=== PATIENT | male | born 1990 | race Two or more races ===

== ENCOUNTER 2022-08-28 00:57 | Emergency (ER) | payer MEDICAID, SELFPAY ==
[2022-08-28 01:09] VITALS: BP 120/66; BP 120/78; PULSE 65; PULSE 76; RESP 18; TEMP 36.8; O2SAT 100; O2SAT 98; BMI 22.9
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
[2022-08-28 01:51] VITALS: BP 105/59; PULSE 64; RESP 19; O2SAT 98
[2022-08-28] MEDS: Acetaminophen 325 MG TABLET 975 MG PO (02:45)
[2022-08-28 02:59] VITALS: BP 107/72; PULSE 67; RESP 18; TEMP 36.2; O2SAT 97
== END 2022-08-28 03:01 | disposition home or self-care (01) ==
PROVIDERS: Emergency Provider Emergency Medicine
DX: S01.01XA Laceration without foreign body of scalp, initial encounter (principal); R51.9 Headache, unspecified; X99.9XXA Assault by unspecified sharp object, initial encounter; Y93.9 Activity, unspecified; Y92.9 Unspecified place or not applicable; Y99.9 Unspecified external cause status
CPT/HCPCS: 12002; 99283; 99284

== ENCOUNTER 2022-08-29 11:01 | Emergency (ER) | payer MEDICAID, SELFPAY ==
--- NOTE | ~2022-08-29 | CT_ITS ---
EXAMINATION: HEAD CT WITHOUT CONTRAST CERVICAL SPINE CT WITHOUT CONTRAST CLINICAL INFORMATION: Trauma COMPARISON: CT head 08/21/2018 TECHNIQUE: Contiguous axial imaging of the head was performed without the administration of IV contrast. Axial multidetector volumetric images were also performed through the cervical spine without contrast. Multiplanar reconstructed images in coronal and sagittal orientations were submitted. DOSE: 1196 mGy-cm FINDINGS: HEAD: There is a right sided scalp hematoma, with the skin carlos alberto in the right parietal region. No underlying calvarial fracture. There is evidence of contrecoup injury in the left frontoparietal region, with multiple foci of predominantly subarachnoid hemorrhage. There probably a small hemorrhagic contusion present as well, with the some surrounding edema. Image 8:66. No evidence of infarction. No abnormal mass-effect or midline shift. No extra-axial fluid collections. Tariq to white matter differentiation is well preserved. The ventricles are normal in size and configuration. . No acute calvarial fracture is seen. The sinuses and mastoid air cells are clear. CERVICAL SPINE: Straightening of the spinal curvature. There is anatomic alignment of the vertebral bodies and posterior elements. The atlantoaxial and atlantooccipital articulations are maintained. Mild disc degeneration at C6-C7. No evidence of acute fracture. No prevertebral soft tissue swelling. Visualized lung apices appear unremarkable. No suspicious findings.. CT/CT cervical spine wo IV con IMPRESSION: 1. There is evidence of contrecoup injury in the left frontoparietal region, with multiple foci predominantly subarachnoid hemorrhage. There probably is a small hemorrhagic contusion present as well, with surrounding edema.. Recommend clinical correlation, management and close clinical follow-up. Recommend short-term follow-up CT for reassessment. Further evaluation with MRI as clinically warranted. 2. No CT evidence of acute fracture or malalignment in the cervical spine. This critical result was discussed with Dr. Blevisn at 12:34 PM on 08/29/2022 and it was ascertained that the content and urgency of the report was understood at the time of direct communication.
[2022-08-29 11:04] VITALS: BP 108/80; PULSE 77; RESP 18; TEMP 36.7; O2SAT 98; BMI 24.3
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
--- NOTE | 2022-08-29 12:52 | PC.NURSE ---
CALLED PTS CONTACT NUMBER, [employer] ANSWERED AND IT WAS RECOMMENDED THE PATIENT RETURNS TO THE ED FOR FURTHER EVALUATION.
== END 2022-08-29 12:20 | disposition left against medical advice (07) ==
PROVIDERS: Emergency Provider Emergency Medicine
DX: R51.9 Headache, unspecified (principal); M54.2 Cervicalgia
CPT/HCPCS: 70450; 72125; 87635; 99284; 99285

== ENCOUNTER 2022-08-29 13:42 | Emergency (ER) | payer MEDICAID, SELFPAY ==
[2022-08-29 13:49] VITALS: RESP 20; BMI 23.6
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
[2022-08-29] MEDS: oxyCODONE HCl Immed Release 5 MG TABLET 10 MG PO (14:07)
[2022-08-29 14:14] VITALS: BP 108/65; PULSE 55; RESP 17; O2SAT 99
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
[2022-08-29 15:07] LABS: COVID-19 Test Negative (Negative)
--- NOTE | 2022-08-29 15:18 | PC.NURSE ---
rn to rn report given to antionette at [facility] [place]pt transfered via ems.
== END 2022-08-29 15:22 | disposition short-term general hospital (02) ==
PROVIDERS: Emergency Provider Emergency Medicine
DX: S06.6X0A Traumatic subarachnoid hemorrhage without loss of consciousness, initial encounter (principal); W19.XXXA Unspecified fall, initial encounter; Y93.9 Activity, unspecified; Y92.9 Unspecified place or not applicable; Y99.9 Unspecified external cause status; Z20.822 Contact with and (suspected) exposure to COVID-19; Z79.899 Other long term (current) drug therapy
CPT/HCPCS: 87635; 99285

== ENCOUNTER 2022-09-09 19:17 | Emergency (ER) | payer MEDICAID, SELFPAY ==
--- OUTSIDE RECORDS SUMMARY | 2022-09-09 21:09 | XMS_ITS | Continuity of Care Document ---
:1990 Author Organization [facility] Address [address] [place] [address]- Care Team Providers Name Role Phone Not on Staff, PCP Primary Care Physician Unavailable Encounter [facility] Date(s): 08/29/22 - 08/29/22 [facility] [address] [place] [address]- Encounter Diagnosis Subarachnoid hemorrhage (Final) - 02/02/22 Discharge Disposition: A-D/C Home Attending Physician: Mecca Kirk MD Admitting Physician: Mecca Kirk MD Referring Physician: Not on Staff, Referring MD Allergies, Adverse Reactions, Alerts No Known Allergies Vital Signs Most recent to oldest [Reference Range]: 1 2 Oxygen Saturation [94-100 %] 99 % 99 % (08/29/22 6:33 PM) (08/29/22 3:49 PM) Pulse Rate [55-90 bpm] 52 bpm 62 bpm *L* (08/29/22 3:49 PM) (08/29/22 6:33 PM) Blood Pressure [90-138/55-84 mm Hg] 108/85 mm Hg 127/ 81 mm Hg (08/29/22 6:33 PM) (08/29/22 3:49 PM) Respiratory Rate [16-30 br/min] 21 br/min 21 br/mi n (08/29/22 6:33 PM) (08/29/22 3:49 PM) Temperature [96.8-100.4 DegF] 98.3 DegF (08/29/22 3:49 PM) Mode of Delivery (Oxygen) Room air Room air (08/29/22 6:33 PM) (08/29/22 3:49 PM) Blood pressure sites Arm, right Arm, right (08/29/22 6:33 PM) (08/29/22 3:49 PM) Temperature Route Oral (08/29/22 3:49 PM) Patient Care team information PersonnelName: Not on Staff, PCP
== END 2022-09-09 21:19 | disposition left against medical advice (07) ==
PROVIDERS: Emergency Provider Emergency Medicine
DX: M79.643 Pain in unspecified hand (principal)

== ENCOUNTER 2022-09-12 17:20 | Emergency (ER) | payer MEDICAID, SELFPAY ==
[2022-09-12 17:33] VITALS: BP 107/65; PULSE 93; RESP 16; TEMP 36.8; O2SAT 96; BMI 27.2
--- NOTE | 2022-09-12 17:35 | ED.RECABL ---
HPI - Recheck/Abnormal Lab/Rx General Chief Complaint: General Medical Stated Complaint: carlos alberto removed from head Time Seen by Provider: 09/12/22 17:36 Source: patient Mode of arrival: ambulatory Limitations: no limitations History of Present Illness HPI narrative: 32-year-old male presenting to the ER with request for staple removal he was seen here on 08/28/22 for a closed head injury and had 4 carlos alberto placed. He denies any new symptoms. Reports that he was described medication although he did not take it. He reports he feels much better denies any symptoms at this time. Is requesting for refill for his psoriasis. He denies any other symptoms complaints or concerns at this time. MD complaint: suture/staple removal Initial visit (ago): day(s) (15) Initial visit for: laceration Returns today for: staple/stitch removal Symptoms since prior visit: no new symptoms Context: planned re-check Associated symptoms: none Treatments prior to arrival: other (see above ) Related Data Previous Rx's Medication Instructions Recorded acetaminophen 500 mg capsule 500 mg PO Q6H PRN pain #10 caps 08/28/22 ibuprofen 600 mg tablet 600 mg PO Q8H PRN pain #14 tabs 08/28/22 prednisone 20 mg tablet 40 mg PO DAILY rash 5 days #10 tabs 09/12/22 triamcinolone acetonide 0.5 % 1 appl topical QID psoriasis #465 09/12/22 topical ointment grams Allergies Allergy/AdvReac Type Severity Reaction Status Date / Time No Known Allergies Allergy Unverified 07/18/20 16:01 [No Known Allergies*] Review of Systems Review of Systems: Constitutional : No Fever, No Chills, Cardiovascular : No Chest Pain, No SOB Respiratory : No Dyspnea Gastrointestinal : No abdominal pain Musculoskeletal : No Joint Swelling Skin : positive healing skin laceration, +rash, No Foreign bodies, No surrounding erythema Neuro : No Weakness, No Numbness/tingling Psych : No SI/HI/thoughts of self injury Yes all other systems are reviewed and are negative [facility] Past Medical History Attestation statement: The following information was validated with the patient. Source: old records reviewed and nursing notes reviewed Social History Social History Alcohol intake: never Patient Tobacco Use Status: Never used Tobacco Advance Directives: No Advance Directives Information Provided: No Physical Exam Vital Signs: Vital Signs: Last Vital Signs Temp 98.2 F 09/12/22 17:33 Pulse 93 09/12/22 17:33 Resp 16 09/12/22 17:33 BP 107/65 09/12/22 17:33 Pulse Ox 96 09/12/22 17:33 O2 Del Method 09/12/22 17:33 BMI result Body Mass Index 27.2 vital signs have been reviewed as normal and appeared to be correct. Blood pressure normal Heart rate normal. Respiration rate normal. Temperature normal. Oxygen saturation normal. Appearance: Alert. Oriented X3. No acute distress. Head: Normal external exam. Normocephalic. Atraumatic. Eyes: PERRLA. EOMI. Conjunctiva and sclera normal. Eyelids normal. ENT: Pharynx normal. Uvula midline. Moist mucous membranes. Neck: Normal inspection. Neck supple. FROM. CVS: Normal heart rate and rhythm. Respiratory: No respiratory distress. Painless inspiration. Skin: Skin warm and dry. Normal skin color. Normal skin turgor. Well healing lacerations to right side of scalp with [address] No signs of infection. Patient noted to have psoriasis rash scattered throughout the entire body. No additional rashes/lesions/lacerations noted. Extremities: Extremities exhibit normal range of motion. Extremities nontender. Neuro: Oriented X 3. No motor deficit. No sensory deficit. Reflexes normal. Normal steady gait. No focal neuro deficits noted. Course Course Course Narrative: Patient now status post staple removal. Four carlos alberto removed. Patient tolerated procedure well. No complications. No signs of infection. Will also DC home with medication for his psoriasis and instructions return if any new or worsening symptoms follow up with primary care provider. Patient understands agrees with this plan. MDM - Recheck/Abnormal Lab/Rx Medical Records Attestation: I reviewed the patient's medical records. Discharge Plan Discharge Clinical Impression: Encounter for removal of carlos alberto, Psoriasis Patient Disposition: Home, Self-Care Instructions: Stitches Removal (ED) Prescriptions: New triamcinolone acetonide 0.5 % ointment 1 appl topical QID Qty: 465 0RF prednisone 20 mg tablet 40 mg PO DAILY 5 Days Qty: 10 0RF No Action acetaminophen 500 mg capsule 500 mg PO Q6H PRN (Reason: pain) Qty: 10 0RF ibuprofen 600 mg tablet 600 mg PO Q8H PRN (Reason: pain) Qty: 14 0RF Rx Instructions: alternate Tylenol and ibuprofen every 4-6 hours Referrals: Physician,Unknown J [Primary Care Provider] - (your pcp)
== END 2022-09-12 17:50 | disposition home or self-care (01) ==
LOC: HO.ED 17:41
PROVIDERS: Emergency Provider Emergency Medicine
DX: Z48.02 Encounter for removal of sutures (principal); S01.01XD Laceration without foreign body of scalp, subsequent encounter; X58.XXXD Exposure to other specified factors, subsequent encounter; L40.9 Psoriasis, unspecified
CPT/HCPCS: 99282; 99283

== ENCOUNTER 2024-12-27 04:26 | Emergency (ER) | payer OTHER, SELFPAY ==
[2024-12-27 04:32] VITALS: BP 113/65; PULSE 91; RESP 16; TEMP 36.6; O2SAT 95; BMI 26.6
--- OUTSIDE RECORDS SUMMARY | 2024-12-27 12:04 | XMS_ITS | Clinical Summary ---
Author Organization [facility] Address [address] [place] [address] Care Team Providers Care Design Drafter Name Role Phone Unavailable Primary Care Provider Unavailabl e Social History Tobacco Use Types Packs/Day Years Used Date Smoking Tobacco: Never Assessed Sex and Gender Information Value Date Recorded Sex Assigned at Not on file Legal Sex Male 1:38 PM EDT Gender Identity Not on file Sexual Orientation Not on file Plan of Treatment Health Maintenance Due Date Last Done Comments DTaP,Tdap,and Td Vaccines (1 - Tdap) 2009 Hepatitis B Vaccines (1 of 3 - 19+ 3-dose series) 2009 Depression Screening 05/24/2024 HIV Screening 05/24/2024 Hepatitis C Screening 05/24/2024 Social Influencers of Health Screening 05/24/2024 COVID-19 Vaccine (1 - 2023-2 5 season) 2024 Influenza Vaccine (#1) 2024 HIB Vaccines Aged Out No longer eligi ble based on patient's age to complete this topic HPV Vaccines Aged Out No longer eligi ble based on patient's age to complete this topic Hepatitis A Vaccines Aged Out No long er eligible based on patient's age to complete this topic IPV Vaccines Aged Out No longer eligi ble based on patient's age to complete this topic MMR Vaccines Aged Out No longer eligi ble based on patient's age to complete this topic Meningococcal ACWY Vaccine Aged Out N o longer eligible based on patient's age to complete this topic Meningococcal B Vacine Aged Out No lo nger eligible based on patient's age to complete this topic Pneumococcal Vaccine: Pediat rics (0 to 5 Years) and At-Risk Patients (6 to 64 Years) Aged Out No longer eligible b ased on patient's age to complete this topic RSV Immunization Patients Un jacques 20 months Aged Out No longer eligible b ased on patient's age to complete this topic Varicella Vaccines Aged Out No longer eligible based on patient's age to complete this topic
== END 2024-12-27 10:06 | disposition left against medical advice (07) ==
PROVIDERS: Emergency Provider Emergency Medicine
DX: L40.9 Psoriasis, unspecified (principal); Z53.21 Procedure and treatment not carried out due to patient leaving prior to being seen by health care provider
CPT/HCPCS: 99281

== ENCOUNTER 2025-01-22 01:57 | Emergency (ER) | payer OTHER, SELFPAY ==
[2025-01-22 02:06] VITALS: BP 120/72; PULSE 91; RESP 16; TEMP 36.7; O2SAT 96; BMI 22.5
[2025-01-22 06:21] VITALS: BP 93/72; PULSE 75; RESP 16; TEMP 36.4; O2SAT 96
--- NOTE | 2025-01-22 08:23 | ED_ITS ---
HPI - Skin/Abscess/Foreign Bdy General Chief complaint: Skin/Abscess/Foreign Body Stated complaint: psoriasis Time Seen by Provider: 01/22/25 08:22 Source: patient, RN notes reviewed and old records reviewed Mode of arrival: ambulatory History of Present Illness ED Provider: Jena Reis PA-C HPI narrative: 34-year-old male with a past medical history of psoriasis presenting to the ED complaining of psoriasis flare and requesting medication refill. States he uses triamcinolone ointment on rash with improvement however has been out of it for few months. States has not fall with Dermatology for couple years. Denies new/recent exposures including soap, lotion, detergent, SOB, throat closing sensation. Related Data Previous Rx's ?Medication ?Instructions ?Recorded acetaminophen 500 mg capsule 500 mg PO Q6H PRN pain #10 caps 08/28/22 ibuprofen 600 mg tablet 600 mg PO Q8H PRN pain #14 tabs 08/28/22 prednisone 20 mg tablet 40 mg (2 x 20 mg) PO DAILY rash 5 09/12/22 days #10 tabs triamcinolone acetonide 0.5 % 1 appl topical QID psoriasis #465 09/12/22 topical ointment grams triamcinolone acetonide 0.025 % 1 appl topical BID PRN rash #454 01/22/25 topical ointment grams Allergies Allergy/AdvReac Type Severity Reaction Status Date / Time No Known Allergies Allergy Verified 01/22/25 02:09 [No Known Allergies*] Review of Systems Review of Systems: Yes all other systems are reviewed and are negative Constitutional: Constitutional: Reports as per [facility] Past Medical History Attestation statement: The following information was validated with the patient. Source: old records reviewed Social History Social History Alcohol intake: never Patient Tobacco Use Status: Never used Tobacco Advance Directives: No Advance Directives Information Provided: Yes Do you have a plan to hurt others: No Plan Physical Exam Vital Signs: Vital Signs: Last Vital Signs Temp 97.6 F 01/22/25 06:21 Pulse 75 01/22/25 08:41 Resp 16 01/22/25 06:21 BP 104/75 01/22/25 08:41 Pulse Ox 99 01/22/25 08:41 O2 Del Method Room Air 01/22/25 08:41 BMI result Body Mass Index 22.5 Const: General: cooperative, healthy appearing and no acute distress Orientation/consciousness: patient oriented x3 Limitations: no limitations HEENT: Head: Yes normal to inspection and Yes atraumatic Ears: hearing grossly normal bilaterally General nose exam: Normal external nose present Face and sinus: Yes normal facial exam Eyes: General: appearance normal, both eyes and all related structures EOM: EOMs intact bilaterally Neck: Neck: Yes normal visual inspection and Yes no meningeal signs Resp: Effort & Inspection: normal respiratory effort and no respiratory distress Auscultation: clear to auscultation bilaterally Cardio: Rate: regular rate Heart sounds: S1 normal heart sound present and S2 normal heart sound present Skin: Other: + diffuse psoriasis patches noted to abd omen, back, buttock, lower extremities with scaling. No palm/sole involvement. No sloughing. Wounds: no wounds Neuro: General: patient oriented x3, tone normal and no meningeal signs Cranial nerves: Yes CN's II-XII intact bilaterally Gait exam (Neuro): Normal gait present Extrem: General: Yes normal to inspection Medical Decision Making Medical Decision Making MDM Narrative: 34-year-old male with a past medical history of psoriasis presenting to the ED complaining of psoriasis flare and requesting medication refill. On exam vital signs stable, NAD, nontoxic appearing, physical exam as noted above consistent with psoriasis. No evidence of overlying cellulitis. No evidence of abscess or drainable collection. No evidence of anaphylaxis, SJS or TENs Plan: Refilled triamcinolone, dermatology referral Please refer to course for remaining clinical decision making, interpretation of labs/imaging results, and discussions with consultants and/or family members. Results discussed with patient including worrisome signs and symptoms and strict return precautions, and when to return to the emergency department. They verbalized understanding and feel safe for discharge at this time. Differential Diagnosis Differential Diagnoses: The differential diagnosis associated with the presentation includes As above External Record Review External record reviewed: Inpatient record, Office record, Outpatient record, Prior outpatient labs, Prior outpatient radiology, Primary care record and Outside ED record Tests considered The following testing was considered but not selected: As above Prescription Management I considered prescription management with: Other Social Determinants Patient?s care significantly limited by Social Determinants of Health including: Other Social Determinant of Health Discharge Plan Discharge Clinical Impression: Psoriasis Patient Disposition: Home, Self-Care Instructions: Psoriasis (ED) Additional Instructions: Use triamcinolone, topical steroid ointment to your rash/patches only DO NOT APPLY TO YOUR FACE, HANDS, FEET THEY MADE DISCOLORED YOUR SKIN You need to follow-up with Dermatology If your symptoms persist or worsen return to the ED Prescriptions: New triamcinolone acetonide 0.025 % ointment 1 appl topical BID PRN (Reason: rash) Qty: 454 0RF No Action acetaminophen 500 mg capsule 500 mg PO Q6H PRN (Reason: pain) Qty: 10 0RF ibuprofen 600 mg tablet 600 mg PO Q8H PRN (Reason: pain) Qty: 14 0RF Rx Instructions: alternate Tylenol and ibuprofen every 4-6 hours triamcinolone acetonide 0.5 % ointment 1 appl topical QID Qty: 465 0RF prednisone 20 mg tablet 40 mg PO DAILY 5 Days Qty: 10 0RF Referrals: [facility] [Outside] [facility] [Outside] Discharge Date/Time: 01/22/25 11:08 Print Language: Kiswahili
[2025-01-22 08:41] VITALS: BP 104/75; PULSE 75; O2SAT 99
== END 2025-01-22 11:08 | disposition home or self-care (01) ==
PROVIDERS: Emergency Provider Emergency Medicine Emergency Medical Services; PCP Internal Medicine
DX: L40.9 Psoriasis, unspecified (principal); Z76.0 Encounter for issue of repeat prescription
CPT/HCPCS: 99283

== ENCOUNTER 2025-02-11 21:00 | Emergency (ER) | payer OTHER, SELFPAY ==
[2025-02-11 21:27] VITALS: BP 132/85; PULSE 114; RESP 19; TEMP 37.7; O2SAT 98; BMI 25.8
[2025-02-11 21:50] LABS: MANUAL DIFF FLAG NO
[2025-02-11 22:00] LABS: Basophils Absolute Auto 0.1 X10*3/uL (0.0-0.2); Basophils Percent Auto 0.3 % (0-2); Hematocrit 48.2 % (42.0-52.0); Hemoglobin 16.8 g/dl (14.0-18.0); Imm Gran Abs Auto 0.09 X10*3/uL (0.00-0.03); Imm Gran Pct Auto 0.5 % (0.0-0.4); Lymphocytes Absolute Auto 1.6 X10*3/uL (1.2-4.9); Lymphocytes Percent Auto 8.8 % (20-40); Mean Corpuscular HGB Conc 34.9 g/dl (31.0-36.0); Mean Corpuscular Hemoglobin 29.8 pg (27.0-33.0); Mean Corpuscular Volume 85.5 fL (80.0-98.0); Mean Platelet Volume 11.4 fL (9.4-12.4); Monocytes Absolute Auto 1.3 X10*3/uL (0.1-1.2); Monocytes Percent Auto 6.8 % (2-11); Neutrophils Absolute Auto 15.6 x10*3/uL (2.0-8.3); Neutrophils Percent Auto 83.6 % (45-73); Platelet Count 174 X10*3/uL (160-400); Red Blood Count 5.64 X10*6/uL (4.60-5.80); Red Cell Distribution Width 14.6 % (11.0-16.0); White Blood Count 18.6 X10*3/uL (4.8-10.8)
--- NOTE | 2025-02-11 22:13 | PC.NURSE ---
Re collect for chemistry called from the lab. Pt declines to have blood work re drawn.
--- NOTE | 2025-02-11 22:56 | PC.NURSE ---
This nurse made aware by chiller technician that pt declined to have blood work re-drawn and is currently getting dressed. When this nurse went to the room pt is dressed in his regular clothes and when asked why pt changed, if he was leaving, pt did not answer and continue to adjust his clothing and pt then left. Charge nurse made aware.
== END 2025-02-11 23:03 | disposition left against medical advice (07) ==
PROVIDERS: Internal Medicine; Emergency Provider Emergency Medicine Emergency Medical Services; PCP Internal Medicine
DX: S60.311A Abrasion of right thumb, initial encounter (principal); W55.03XA Scratched by cat, initial encounter; Y93.9 Activity, unspecified; Y92.9 Unspecified place or not applicable; Y99.9 Unspecified external cause status; Z53.21 Procedure and treatment not carried out due to patient leaving prior to being seen by health care provider
CPT/HCPCS: 36415; 85025; 99281; 99284

== ENCOUNTER 2025-03-01 22:55 | Emergency (ER) | payer OTHER, SELFPAY ==
[2025-03-01 23:00] VITALS: BP 116/71; PULSE 99; RESP 16; TEMP 36.2; O2SAT 97; BMI 21.5
--- OUTSIDE RECORDS SUMMARY | 2025-03-02 00:27 | XMS_ITS | Clinical Summary ---
Author Organization [facility] Address [address] [place] [address] Phone Care Team Providers Care Dairy Husbandry Worker Name Role Phone Diego Francois Primary Care Provider [phone] Immunizations Immunization Administration Dates Next Due DTP 06/25/1995, 3,01/12/1992,1990,1990 Hep B, ped/adol 04/09/2005,09/01/2004,10/02/2002 Hib (PRP-T) 1990 IPV 1990 MMR 06/25/1995,11/28/1991 OPV 06/25/1995,11/28/1991,1990 Td (adult) (MBL), 2 Lf tetan us toxoid, PF, adsorbed 08/28/2002 Family History Relation Name Status Comments Mother Mother: Asthma Social History Tobacco Use Types Packs/Day Years Used Date Smoking Tobacco: Never Assessed Sex and Gender Information Value Date Recorded Sex Assigned at Not on file Legal Sex Male 4:22 PM EDT Gender Identity Not on file Sexual Orientation Not on file Plan of Treatment Health Maintenance Due Date Last Done Comments DTaP,Tdap,and Td Vaccines (6 - Tdap) 08/29/2002 08/28/2002, 06/25/1995, 04/04/1993, Additional history exists Varicella Vaccines (1 of 2 - 13+ 2-dose series) 2003 Influenza Vaccines (#1) 2024 COVID-19 Vaccine ( - 2023- season) 2024 HIB Vaccines Aged Out 1990 No longer eligi ble based on patient's age to complete this topic IPV Vaccines Completed 06/25/1995, 11/02, 1990, Additional history exists MMR Vaccines Completed 06/25/1995, 11/28/1991 Hepatitis B Vaccines Completed 04/09/2005, 09/01/2004, 10/02/2002 HPV Vaccines Aged Out No longer eligi ble based on patient's age to complete this topic Hepatitis A Vaccines Aged Out No long er eligible based on patient's age to complete this topic Men B Vaccine Aged Out No longer elig ible based on patient's age to complete this topic Meningococcal Vaccine Aged Out No rakan beatrice eligible based on patient's age to complete this topic Pneumococcal Vaccine Aged Out No long er eligible based on patient's age to complete this topic Care Teams Dairy Husbandry Worker Relationship Specialty Start Date End Date Diego Francois [address] [place] [id number] PCP - General 06/11/17
== END 2025-03-02 00:43 | disposition left against medical advice (07) ==
PROVIDERS: Emergency Provider Emergency Medicine
DX: L30.9 Dermatitis, unspecified (principal); Z53.21 Procedure and treatment not carried out due to patient leaving prior to being seen by health care provider
CPT/HCPCS: 99281

== ENCOUNTER 2025-03-08 22:38 | Emergency (ER) | payer OTHER, SELFPAY ==
[2025-03-08 22:45] VITALS: BP 115/58; PULSE 86; RESP 20; TEMP 36.9; O2SAT 99; BMI 22.1
--- NOTE | 2025-03-08 23:09 | ED_ITS ---
HPI - Skin/Abscess/Foreign Bdy General Chief complaint: Skin/Abscess/Foreign Body Stated complaint: left side forehead irritation Time Seen by Provider: 03/08/25 22:56 Source: patient and old records reviewed Mode of arrival: ambulatory Limitations: no limitations History of Present Illness ED Provider: RAMSES NESS narrative: 34 yo male with PMH of psoriasis who ran out of his triamcinolone cream now has lesions on the trunk that is bothering him. He has no fevers, redness, swelling, yellow drainage. This is chronic MD complaint: rash Onset (ago): year(s) Tetanus up to date: yes Location: generalized Severity: mild Relieving factors: none Exacerbating factors: none Context: other Associated symptoms: denies other symptoms Treatments prior to arrival: none Related Data Previous Rx's ?Medication ?Instructions ?Recorded acetaminophen 500 mg capsule 500 mg PO Q6H PRN pain #10 caps 08/28/22 ibuprofen 600 mg tablet 600 mg PO Q8H PRN pain #14 tabs 08/28/22 prednisone 20 mg tablet 40 mg (2 x 20 mg) PO DAILY rash 5 09/12/22 days #10 tabs triamcinolone acetonide 0.5 % 1 appl topical QID psoriasis #465 09/12/22 topical ointment grams triamcinolone acetonide 0.025 % 1 appl topical BID PRN rash #454 01/22/25 topical ointment grams triamcinolone acetonide 0.1 % 1 appl topical BID 10 days #15 03/08/25 topical cream grams Allergies Allergy/AdvReac Type Severity Reaction Status Date / Time No Known Allergies Allergy Verified 03/08/25 22:46 [No Known Allergies*] Review of Systems Review of Systems: Constitutional : No Fever, No Chills ENT/Mouth : No sore throat, No Rhinorrhea Eyes: No Eye Pain, No Swelling, No Redness Cardiovascular : No Chest Pain, No SOB Respiratory : No Cough, No Sputum Gastrointestinal : No Nausea, No Vomiting, No Diarrhea, No abdominal Pain Genitourinary : No Dysuria, No Hematuria Musculoskeletal : No joint pain, No Myalgias, No Joint Swelling Skin : pos Skin Lesions, positive skin rash Neuro : No Weakness, No Numbness, No Headache All other systems reviewed and are negative PMFSH Past Medical History Attestation statement: The following information was validated with the patient. Source: old records reviewed Medical History Psoriasis Social History Social History Alcohol intake: current Alcohol intake frequency: holidays/special occasions only Patient Tobacco Use Status: Never used Tobacco Substance Use Type: Marijuana Physical Exam Vital Signs: Vital Signs: Last Vital Signs Temp 98.4 F 03/08/25 23:19 Pulse 86 03/08/25 23:19 Resp 20 03/08/25 23:19 BP 115/58 L 03/08/25 23:19 Pulse Ox 99 03/08/25 23:19 O2 Del Method Room Air 03/08/25 23:19 BMI result Body Mass Index 22.1 Appearance: Alert. Oriented X3. No acute distress. Eyes: Pupils equal, round and reactive to light. ENT: Pharynx normal. Neck: Normal inspection. CVS: Pulses normal. Respiratory: No respiratory distress. Abdomen: Soft and nontender. Skin: Skin warm and dry. areas of psoriasis plaque on trunk no signs of secondary infection Extremities: No lower extremity edema. Neuro: Oriented X 3. No motor deficit. No sensory deficit. CN2-12 intact Medical Decision Making Medical Decision Making MDM Narrative: 34 yo male with PMH of psoriasis who has no new complaints but wants his cream filled - he has no signs of infection will fill short course of topical therapy. Differential Diagnosis Differential Diagnoses: The differential diagnosis associated with the presentation includes psoriasis External Record Review External record reviewed: Outpatient record Prescription Management I considered prescription management with: Other Discharge Plan Discharge Clinical Impression: Psoriasis Patient Disposition: Home, Self-Care Instructions: Psoriasis (ED) Additional Instructions: return for redness, yellow drainage, fevers, signs of infection follow up with your doctor Prescriptions: New triamcinolone acetonide 0.1 % cream 1 appl topical BID 10 Days Qty: 15 0RF No Action acetaminophen 500 mg capsule 500 mg PO Q6H PRN (Reason: pain) Qty: 10 0RF ibuprofen 600 mg tablet 600 mg PO Q8H PRN (Reason: pain) Qty: 14 0RF Rx Instructions: alternate Tylenol and ibuprofen every 4-6 hours triamcinolone acetonide 0.5 % ointment 1 appl topical QID Qty: 465 0RF prednisone 20 mg tablet 40 mg PO DAILY 5 Days Qty: 10 0RF triamcinolone acetonide 0.025 % ointment 1 appl topical BID PRN (Reason: rash) Qty: 454 0RF Interventions: ED Discharge Assessment Last Done: 03/08/25 23:19 Print Language: Nepalese
[2025-03-08 23:19] VITALS: BP 115/58; PULSE 86; RESP 20; TEMP 36.9; O2SAT 99
--- OUTSIDE RECORDS SUMMARY | 2025-03-08 23:27 | XMS_ITS | Clinical Summary ---
Author Organization [employer] Address [address] [facility] [address] [place] [address] Care Team Providers Care Storage Battery Inspector Name Role Phone Unavailable Primary Care Provider Unavailabl e Encounters Date Type Department Care Team Description 03/08/2025 Telephone [facility] [address] [place] [address] Nicole Edwards CNP SEISMOLOGY TEACHER from Last 3 Months Social History Tobacco Use Types Packs/Day Years Used Date Smoking Tobacco: Never Assessed Sex and Gender Information Value Date Recorded Sex Assigned at Male 08/31/2022 10:34 AM EDT Legal Sex Male 10:34 AM EDT Gender Identity Male 08/31/2022 10:34 AM EDT Sexual Orientation Straight 08/31/2022 10 :34 AM EDT Plan of Treatment Health Maintenance Due Date Last Done Comments Depression Screening 1990 Alcohol/Substance Use Screening 2002 Tobacco Screening 2002 Family Planning (PISQ) 2005 DTaP/Tdap/Td Vaccines (1 - Tdap) 2009 Hepatitis B Vaccines (1 of 3 - 19+ 3-dose series) 2009 COVID-19 Vaccine ( - 2023-2 5 season) 2024 Influenza Vaccine (#1) 2024 09/01/2019 Zoster Vaccines (1 of 2) 2040 RSV Patients and Pa tients Aged 60 years or older (1 - 1-dose 75+ series) 2065 HIB Vaccines Aged Out No longer eligi [...] 5 Years) and At-Risk Patients (6 to 49) Years) Aged Out No longer elig ible based on patient's age to complete this topic RSV under 20 months Aged Out No longe r eligible based on patient's age to complete this topic Rotavirus Vaccines Aged Out No longer eligible based on patient's age to complete this topic
--- OUTSIDE RECORDS SUMMARY | 2025-03-08 23:27 | XMS_ITS | Clinical Summary ---
Author Organization [facility] Address [address] [place] [address] Phone Care Team Providers Care Hair Dryer Name Role Phone Diego Francois Primary Care Provider [phone] Immunizations Immunization Administration Dates Next Due DTP [...] age to complete this topic Care Teams Hair Dryer Relationship Specialty Start Date End Date Diego Francois [address] [place] [id number] PCP - General 06/11/17
--- OUTSIDE RECORDS SUMMARY | 2025-03-08 23:27 | XMS_ITS | Encounter Summary ---
Author Organization [email or web address] Address [address] [facility] [address] [place] [address] Care Team Providers Care Stripe Marker Name Role Phone Unavailable Primary Care Provider Unavailabl e Reason for Visit * Reason Onset Date Comments MANAGER COMPLIANCE 03/08/2025 Encounter Details Date Type Department Care Team (Late st Contact Info) Description 03/08/2025 Telephone [facility] [address] [place] [address] Nicole Edwards CNP [address] [place] [address] MANAGER COMPLIANCE Social History Tobacco Use Types Packs/Day Years Used Date Smoking Tobacco: Never Assessed Sex and Gender Information Value Date Recorded Sex Assigned at Male 08/31/2022 10:34 AM EDT Legal Sex Male 10:34 AM EDT Gender Identity Male 08/31/2022 10:34 AM EDT Sexual Orientation Straight 08/31/2022 10 :34 AM EDT documented as of this encounter Miscellaneous Notes * Telephone Encounter - Nadine Momin - 03/08/2025 11:24 AM EDT Patient walked in, interested in becoming a MANAGER COMPLIANCE. Patient was given the MANAGER COMPLIANCE # and advised to call/leave vm. Patient has some medical conditions. Mentioned he has [employer] as insurance but didn't have card with him. Patients chart was updated. documented in this encounter Plan of Treatment Not on file documented as of this encounter Visit Diagnoses Not on filedocumented in this encounter
== END 2025-03-08 23:27 | disposition home or self-care (01) ==
LOC: HO.ED 23:25
PROVIDERS: Emergency Provider Emergency Medicine
DX: L40.9 Psoriasis, unspecified (principal); R21 Rash and other nonspecific skin eruption
CPT/HCPCS: 99283; 99284

== ENCOUNTER 2025-03-09 12:27 | Emergency (ER) | payer OTHER, SELFPAY ==
[2025-03-09 12:34] VITALS: BP 131/59; BP 148/78; PULSE 104; PULSE 69; RESP 16; TEMP 37.4; O2SAT 98; BMI 21.5
[2025-03-09 12:55] VITALS: BP 131/59; PULSE 69; RESP 16; TEMP 37.4; O2SAT 98
--- NOTE | 2025-03-09 12:55 | ED_ITS ---
HPI - General Adult General Chief complaint: Overdose Stated complaint: UNCOOPERATIVE Time Seen by Provider: 03/09/25 12:51 Source: patient Mode of arrival: ambulatory Limitations: no limitations History of Present Illness ED Provider: Thomas Krishnamurthy HPI narrative: 34-year-old male presents to ED for drug overdose. Patient was found library unresponsive and was given 2 mg of Narcan and patient woke up immediately patient is brought to the ED. patient does not want any further evaluation patient patient does not want control and recovery combat rescue medical evaluation. Related Data Previous Rx's ?Medication ?Instructions ?Recorded acetaminophen 500 mg capsule 500 mg PO Q6H PRN pain #10 caps 08/28/22 ibuprofen 600 mg tablet 600 mg PO Q8H PRN pain #14 tabs 08/28/22 prednisone 20 mg tablet 40 mg (2 x 20 mg) PO DAILY rash 5 09/12/22 days #10 tabs triamcinolone acetonide 0.5 % 1 appl topical QID psoriasis #465 09/12/22 topical ointment grams triamcinolone acetonide 0.025 % 1 appl topical BID PRN rash #454 01/22/25 topical ointment grams triamcinolone acetonide 0.1 % 1 appl topical BID 10 days #15 03/08/25 topical cream grams Allergies Allergy/AdvReac Type Severity Reaction Status Date / Time No Known Allergies Allergy Verified 03/09/25 12:34 [No Known Allergies*] Review of Systems Review of Systems: Overdose Yes all other systems are reviewed and are negative PMFSH Past Medical History Medical History Psoriasis Social History Social History Alcohol intake: current Alcohol intake frequency: holidays/special occasions only Patient Tobacco Use Status: Never used Tobacco Substance Use Type: Marijuana Advance Directives: No Advance Directives Information Provided: No Physical Exam ED Vital Signs: Vital Signs - 24 hr 03/09/25 12:34 Temperature 99.3 F Pulse Rate 69 Respiratory Rate 16 Blood Pressure 131/59 L Pulse Oximetry 98 Oxygen Delivery Method Room Air BMI result Body Mass Index 21.5 Const General: cooperative, healthy appearing, comfortable, no acute distress, well developed, alert, awake and Physically active Orientation/consciousness: patient oriented x3 HENMT Head: Yes normal to inspection, Yes No palpable skull fracture present, Yes normocephalic, Yes atraumatic and No abrasion Eyes General: appearance normal, both eyes and all related structures Neck Neck: Yes normal visual inspection, Yes full ROM, Yes no lymphadenopathy, Yes no meningeal signs, Yes trachea midline, Yes supple, No anterior neck swelling and No tender Chest Chest palpation & inspection: normal inspection of the chest and normal palpation of entire chest wall Resp Effort & Inspection: normal respiratory effort and able to speak in complete sentences Auscultation: clear to auscultation bilaterally Cardio Jugular venous distension: no JVD Heart sounds: S1 normal heart sound present and S2 normal heart sound present GI Inspection: Yes normal to inspection Palpation (GI): Soft to palpation, not firm, nontender, no guarding and not rigid General: Yes no CVA tenderness Back/Spine/Pelvis Back: no CVA tenderness and No back tenderness Skin General skin exam: no rashes or lesions noted, elasticity normal and turgor normal Neuro General: patient oriented x3, gait normal, tone normal, moves all extremities, Normal light touch and pain sensation, no meningeal signs, no focal motor deficits, CN's II-XI intact bilaterally and normal sensation to monofilament Extrem General: Yes normal to inspection, Yes full ROM and Yes capillary refill normal Psych Appearance: grossly normal, well kempt and not disheveled Medical Decision Making Medical Decision Making MDM Narrative: 12:39: Patient was brought in for overdose. patient was found unresponsive and was than given 2mg nasal narcan. patient has pmh of substance abuse. patient presently A0x3 and would like to be discharge. patient presently is asymptomatic. Patient does not want to be throughouly evaluated,. patient explained risk of hypoxia, respiratory failure, brain bleed, other life- threatening etiologies if he does not want to stay to be evaluated. Patient still would like to be discharged. Patient was sign against medical advice.. Patient was explained risk of . Patient refused Narcan or recovery. Patient's headache exam was evaluated. Vital signs stable. Patient is left before sign the AMA papers. Differential Diagnosis Differential Diagnoses: The differential diagnosis associated with the presentation includes (overdose) Admission/Observation Consideration of admission/observation: Escalation of care including admission/observation considered Independent Historian Clinical information obtained from an independent historian. History obtained from or confirmed by: Other (patient) Discharge Plan Discharge Clinical Impression: Drug overdose Patient Disposition: Left Against Medical Advice Instructions: Adult Overdose (ED) Additional Instructions: You are leaving the ED without Narcan or full thorough evaluation. Recommend follow up with primary care provider therapist and control and recovery combat rescue. Return to the ED immediately for any concerning symptoms. Prescriptions: No Action acetaminophen 500 mg capsule 500 mg PO Q6H PRN (Reason: pain) Qty: 10 0RF ibuprofen 600 mg tablet 600 mg PO Q8H PRN (Reason: pain) Qty: 14 0RF Rx Instructions: alternate Tylenol and ibuprofen every 4-6 hours triamcinolone acetonide 0.5 % ointment 1 appl topical QID Qty: 465 0RF prednisone 20 mg tablet 40 mg PO DAILY 5 Days Qty: 10 0RF triamcinolone acetonide 0.1 % cream 1 appl topical BID 10 Days Qty: 15 0RF triamcinolone acetonide 0.025 % ointment 1 appl topical BID PRN (Reason: rash) Qty: 454 0RF Stand Alone Forms: Against Medical Advice Interventions: ED Discharge Assessment Last Done: 03/09/25 12:55 Discharge Date/Time: 03/09/25 13:50 Print Language: Greek
--- NOTE | 2025-03-09 12:55 | PC.NURSE ---
pt given some water and apple sauce. pt immediately demanded to leave. DELILAH Guzman assessed pt and pt is DCed AMA. Pt refused to sign AMA paperwork. pt offered nasal take home narcan and refused. Pt walked with steady gait out of department.
--- OUTSIDE RECORDS SUMMARY | 2025-03-09 13:55 | XMS_ITS | Clinical Summary ---
Author Organization [employer] Address [address] [facility] [address] [place] [address] Care Team Providers Care Brand Designer Name Role Phone Unavailable Primary Care Provider Unavailabl e Encounters Date Type Department Care Team Description 03/08/2025 Telephone [facility] [address] [place] [address] Nicole Edwards CNP CONVERTING SUPERVISOR from Last 3 Months Social History Tobacco [...]
--- OUTSIDE RECORDS SUMMARY | 2025-03-09 13:55 | XMS_ITS | Encounter Summary ---
Author Organization [employer] Address [address] [facility] [address] [place] [address] Care Team Providers Care Shafting Worker Name Role Phone Unavailable Primary Care Provider Unavailabl e Reason for Visit * Reason Onset Date Comments COOK SHORT ORDER 03/08/2025 Encounter Details Date Type Department Care Team (Late st Contact Info) Description 03/08/2025 Telephone [facility] [address] [place] [address] Nicole Edwards CNP [address] [place] [address] COOK SHORT ORDER Social History Tobacco Use Types Packs/Day Years [...] Patient walked in, interested in becoming a COOK SHORT ORDER. Patient was given the COOK SHORT ORDER # and advised to call/leave vm. Patient has some medical conditions. Mentioned he has [employer] as insurance but didn't have card with him. Patients chart was updated. documented in this encounter Plan of Treatment Not on file documented as of this encounter Visit Diagnoses Not on filedocumented in this encounter
--- OUTSIDE RECORDS SUMMARY | 2025-03-09 13:55 | XMS_ITS | Clinical Summary ---
Author Organization [facility] [employer] [facility] Address [address] [place] [address] Care Team Providers Care Rehabilitation Supervisor Name Role Phone Unavailable Primary Care Provider [...] Influencers of Health Screening 05/24/2024 COVID-19 Vaccine ( - 2023-2 5 season) 2024 Influenza Vaccine (Season Ended) 2025 HIB Vaccines Aged Out No longer eligi [...] age to complete this topic Meningococcal B Vaccine Aged Out No l onger eligible based on patient's age to complete [...]
--- OUTSIDE RECORDS SUMMARY | 2025-03-09 13:55 | XMS_ITS | Clinical Summary ---
Author Organization [facility] Address [address] [place] [address] Phone Care Team Providers Care Recreational Vehicle Resort Manager Name Role Phone Diego Francois Primary Care Provider [phone] Immunizations Immunization Administration Dates Next Due DTP [...] age to complete this topic Care Teams Recreational Vehicle Resort Manager Relationship Specialty Start Date End Date Diego Francois [address] [place] [id number] PCP - General 06/11/17
== END 2025-03-09 13:50 | disposition left against medical advice (07) ==
LOC: HO.ED 13:53
PROVIDERS: Emergency Provider Emergency Medicine Emergency Medical Services
DX: T50.901A Poisoning by unspecified drugs, medicaments and biological substances, accidental (unintentional), initial encounter (principal); R40.4 Transient alteration of awareness; Y92.9 Unspecified place or not applicable; Z53.29 Procedure and treatment not carried out because of patient's decision for other reasons
CPT/HCPCS: 99282

== ENCOUNTER 2025-03-20 20:40 | Emergency (ER) | payer OTHER, SELFPAY ==
[2025-03-20 20:44] VITALS: BP 121/64; PULSE 82; RESP 16; TEMP 36.7; O2SAT 97; BMI 20.8
--- NOTE | 2025-03-20 20:46 | ED.SKABFB ---
HPI - Skin/Abscess/Foreign Bdy General Chief complaint: Skin/Abscess/Foreign Body Stated complaint: Skin irritation All over, Skin pain Time Seen by Provider: 03/20/25 20:53 Source: patient Mode of arrival: ambulatory Limitations: no limitations History of Present Illness ED Provider: FLOYD MURILLO PA-C HPI narrative: 34-year-old male with a pmhx significant for psoriasis presents to the ED for evaluation of psoriasis flare in requesting medication refill. Reports using triamcinolone ointment on rash with improvement. Recently ran out of this. States the ointment is the only thing that works. Refuses to use the cream. He has not followed with PCP or Dermatology for a few years now. Denies new/recent exposures including soap, lotion, detergent, SOB, throat closing sensation. Related Data Previous Rx's ?Medication ?Instructions ?Recorded acetaminophen 500 mg capsule 500 mg PO Q6H PRN pain #10 caps 08/28/22 ibuprofen 600 mg tablet 600 mg PO Q8H PRN pain #14 tabs 08/28/22 prednisone 20 mg tablet 40 mg (2 x 20 mg) PO DAILY rash 5 09/12/22 days #10 tabs triamcinolone acetonide 0.5 % 1 appl topical QID psoriasis #465 09/12/22 topical ointment grams triamcinolone acetonide 0.025 % 1 appl topical BID PRN rash #454 01/22/25 topical ointment grams triamcinolone acetonide 0.1 % 1 appl topical BID 10 days #15 03/08/25 topical cream grams triamcinolone acetonide 0.025 % 1 appl topical BID PRN rash #454 03/20/25 topical ointment grams Allergies Allergy/AdvReac Type Severity Reaction Status Date / Time No Known Allergies Allergy Verified 03/20/25 20:45 [No Known Allergies*] Review of Systems Review of Systems: Yes all other systems are reviewed and are negative PMFSH Past Medical History Attestation statement: The following information was validated with the patient. Source: old records reviewed and nursing notes reviewed Medical History Psoriasis Social History Social History Alcohol intake: current Alcohol intake frequency: holidays/special occasions only Patient Tobacco Use Status: Never used Tobacco Substance Use Type: Marijuana Advance Directives: No Advance Directives Information Provided: No Do you have a plan to hurt others: No Plan Physical Exam Vital Signs: Vital Signs: Last Vital Signs Temp 98.0 F 03/20/25 20:44 Pulse 82 03/20/25 20:44 Resp 16 03/20/25 20:44 BP 121/64 03/20/25 20:44 Pulse Ox 97 03/20/25 20:44 O2 Del Method Room Air 03/20/25 20:44 BMI result Body Mass Index 20.8 Vital signs stable General: Well appearing, in no acute distress. Skin: +diffuse psoriasis patches noted to abdomen, back, lower extremities with scaling. No palm/sole involvement. No sloughing. no wounds. Head: Normocephalic, atraumatic. EENT: Hearing is intact b/l. Conjunctiva clear. Sclera is anicteric. PERRLA. EOM intact. Moist mucous membranes.? Neck: Supple without LAD. FROM. Trachea midline.? Cardiac: Chest wall symmetric. RRR Lungs: Normal respiratory effort without accessory muscle use. CTA bilaterally Neuro: AOx3. Normal speech. Ambulating with steady gait. Medical Decision Making Medical Decision Making MDM Narrative: 34-year-old male with a pmhx significant for psoriasis presents to the ED for evaluation of psoriasis flare in requesting medication refill. vital signs stable. on exam, diffuse psoriasis patches noted to abdomen, back, lower extremities with scaling. No palm/sole involvement. No sloughing. no wounds. Exam consistent with psoriasis. No evidence of cellulitis. No abscess or drainable collection. No signs of anaphylaxis, SJS or TEN. Will send refill of triamcinolone ointment to pharmacy. Dermatology referral provided. Differential Diagnosis Differential Diagnoses: The differential diagnosis associated with the presentation includes as above. Admission/Observation not indicated. Prescription Management I considered prescription management with: Other (Triamcinolone ointment) Chronic Conditions Patient?s care impacted by: Other (Psoriasis) Social Determinants Patient?s care significantly limited by Social Determinants of Health including: Other Social Determinant of Health Critical Care Time Critical Care Time Critical Care Time: No Discharge Plan Discharge Clinical Impression: Psoriasis Patient Disposition: Home, Self-Care Instructions: Psoriasis (ED) Additional Instructions: Apply triamcinolone ointmetn (topical steroid) to your rash/patches only DO NOT APPLY TO YOUR FACE, HANDS, FEET THEY MADE DISCOLORED YOUR SKIN You need to follow-up with Dermatology. Referral provided. If your symptoms persist or worsen return to the ED Prescriptions: New triamcinolone acetonide 0.025 % ointment 1 appl topical BID PRN (Reason: rash) Qty: 454 0RF No Action acetaminophen 500 mg capsule 500 mg PO Q6H PRN (Reason: pain) Qty: 10 0RF ibuprofen 600 mg tablet 600 mg PO Q8H PRN (Reason: pain) Qty: 14 0RF Rx Instructions: alternate Tylenol and ibuprofen every 4-6 hours triamcinolone acetonide 0.5 % ointment 1 appl topical QID Qty: 465 0RF prednisone 20 mg tablet 40 mg PO DAILY 5 Days Qty: 10 0RF triamcinolone acetonide 0.1 % cream 1 appl topical BID 10 Days Qty: 15 0RF triamcinolone acetonide 0.025 % ointment 1 appl topical BID PRN (Reason: rash) Qty: 454 0RF Referrals: Mecca Marcos PA-C [Physician Manager Contact] - Physician,Unknown J [Primary Care Provider] - Print Language: St Helenian
[2025-03-20 21:00] VITALS: BP 121/64; PULSE 82; RESP 16; TEMP 36.7; O2SAT 97
== END 2025-03-20 21:00 | disposition home or self-care (01) ==
PROVIDERS: Emergency Provider Emergency Medicine Emergency Medical Services
DX: L40.9 Psoriasis, unspecified (principal)
CPT/HCPCS: 99282; 99283

== ENCOUNTER 2025-06-08 22:36 | Emergency (ER) | payer OTHER, SELFPAY ==
[2025-06-08 22:53] VITALS: BP 121/76; PULSE 82; O2SAT 98
[2025-06-08 23:07] VITALS: BP 116/73; PULSE 63; RESP 16; TEMP 36.6; O2SAT 98; BMI 20.7
--- NOTE | 2025-06-09 03:14 | ED_ITS ---
HPI - General Adult General Chief complaint: General Medical Stated complaint: AMS Time Seen by Provider: 06/09/25 03:05 Source: EMS Mode of arrival: EMS Limitations: other History of Present Illness ED Provider: Dr. Emely Vega HPI narrative: Patient comes to the emergency room via EMS. According to EMS, the patient walked in to [facility] saying that he needed help. Patient did not mentioned anything specific. They told the patient that he needed to medically cleared before getting admitted. They called the ambulance for him. When ambulance arrived to pick him up at [facility], the patient was not able to give him his date of , once answering questions awkwardly, seems a bit confused. Denies any injuries or any pain. Patient did not answer if he has any psychiatric history. Patient has no complaints, patient just states that he has been walking too much for too long. Initially when patient arrived, he was not answering any questions at all, he is covered himself in the blanket and kept giggling Related Data Previous Rx's ?Medication ?Instructions ?Recorded acetaminophen 500 mg capsule 500 mg PO Q6H PRN pain #1 0 caps 08/28/22 ibuprofen 600 mg tablet 600 mg PO Q8H PRN pain #14 t abs 08/28/22 prednisone 20 mg tablet 40 mg (2 x 20 mg) PO DAILY r yajaira 5 09/12/22 days #10 tabs triamcinolone acetonide 0.5 % 1 appl topical QID psori asis #465 09/12/22 topical ointment grams triamcinolone acetonide 0.025 % 1 appl topical BID PRN rash #454 01/22/25 topical ointment grams triamcinolone acetonide 0.1 % 1 appl topical BID 10 da ys #15 03/08/25 topical cream grams triamcinolone acetonide 0.025 % 1 appl topical BID PRN rash #454 03/20/25 topical ointment grams Allergies Allergy/AdvReac Type Severity Reaction Status Date / Time No Known Allergies (No Known Allergy Verified 06/08/25 23:10 Allergies*) Review of Systems Review of Systems: Constitutional : No Weight loss, No Fever, No Chills, No Night Sweats, No Fatigue, No Malaise ENT/Mouth : No Hearing loss, No Ear Pain, No Nasal Congestion, No Sinus Pain, No Hoarseness, No sore throat, No Rhinorrhea, No Swallowing Difficulty Eyes: No Eye Pain, No Swelling, No Redness, No Foreign Body, No Discharge, No Vision Changes Cardiovascular : No Chest Pain, No SOB, No Dyspnea on Exertion, No Orthopnea, No Edema, No Palpitations Respiratory : No Cough, No Sputum, No Wheezing, No Smoke Exposure, No Dyspnea Gastrointestinal : No Nausea, No Vomiting, No Diarrhea, No Constipation, No abdominal Pain, No Hematochezia, No Melena Genitourinary : no irregular bleeding, No Dysuria, No Urinary Frequency, No Hematuria, No Urinary Incontinence, No Urgency, No Flank Pain, No Urinary Flow Changes, No Hesitancy Musculoskeletal : No joint pain, No Myalgias, No Joint Swelling Skin : No Skin Lesions, No rash Neuro : No Weakness, No Numbness, No Paresthesias, No Loss of Consciousness, No Dizziness, No Headache Psych : Denies SI or HI Heme/Lymph: No Bruising, No Bleeding,No Lymphadenopathy Endocrine : No Polyuria, No Polydipsia, No Temperature Intolerance [facility] Past Medical History Medical History Psoriasis Social History Social History Alcohol intake: current Alcohol intake frequency: holidays/special occasions only Patient Tobacco Use Status: Never used Tobacco Substance Use Type: Marijuana Physical Exam ED Exam Exam: Appearance: Alert. No acute distress. Eyes: Pupils equal, round and reactive to light. ENT: Pharynx normal. Neck: Normal inspection. Neck supple. No lymph nodes noted. No crepitus CVS: Normal heart rate and rhythm. Pulses normal. Normal S1 and S2 Respiratory: No respiratory distress. Breath sounds normal. No Wheezing. No rales Abdomen: Soft and nontender. No rigidity. No distention. Skin: Skin warm and dry. Normal skin color. Normal skin turgor. Patient has psoriasis especially around the head Extremities: No lower extremity edema. No Lacerations. No Rash Neuro:. No motor deficit. No sensory deficit. Moving all extremities. No slurred speech. CN 2 through 12 grossly intact Psych: calm, cooperative, bizarre affect Vital Signs: Vital Signs - 24 hr 06/08/25 23:07 Temperature 98 F Pulse Rate 63 Respiratory Rate 16 Blood Pressure 116/73 Pulse Oximetry 98 Oxygen Delivery Method Room Air BMI result Body Mass Index 20.7 Course Course Course Narrative: Reviewing patient's past medical records, seems that patient has been in the emergency room previously for drug overdose. At this time, all of patient's labs pending Care team consult pending Physician observation started at 03:15 Medical Decision Making Differential Diagnosis Differential Diagnoses: The differential diagnosis associated with the presentation includes (Polysubstance abuse, alcohol abuse) Admission/Observation Consideration of admission/observation: Escalation of care including admission/observation considered (Given patient's initial presentation, observation pending. Patient is under physician observation waiting to be seen by the care team) Critical Care Time Critical Care Time Critical Care Time: Yes Total Critical Care Time: 35 Attestation: I have personally provided critical care time. Time includes review of lab data, radiology results, discussion with consultants, and monitoring for potential decompensation. Intervention performed as documented. Discharge Plan Discharge Clinical Impression: Polysubstance abuse Prescriptions: No Action acetaminophen 500 mg capsule 500 mg PO Q6H PRN (Reason: pain) Qty: 10 0RF ibuprofen 600 mg tablet 600 mg PO Q8H PRN (Reason: pain) Qty: 14 0RF Rx Instructions: alternate Tylenol and ibuprofen every 4-6 hours triamcinolone acetonide 0.5 % ointment 1 appl topical QID Qty: 465 0RF prednisone 20 mg tablet 40 mg PO DAILY 5 Days Qty: 10 0RF triamcinolone acetonide 0.1 % cream 1 appl topical BID 10 Days Qty: 15 0RF triamcinolone acetonide 0.025 % ointment 1 appl topical BID PRN (Reason: rash) Qty: 454 0RF triamcinolone acetonide 0.025 % ointment 1 appl topical BID PRN (Reason: rash) Qty: 454 0RF Print Language: Cambodian
[2025-06-09 04:03] VITALS: BP 133/73; PULSE 75; RESP 16; TEMP 36.4; O2SAT 96
[2025-06-09 04:04] LABS: Hematocrit 42.4 % (42.0-52.0); Hemoglobin 14.9 g/dl (14.0-18.0); Imm Gran Abs Auto 0.01 X10*3/uL (0.00-0.03); Imm Gran Pct Auto 0.2 % (0.0-0.4); Lymphocytes Absolute Auto 2.7 X10*3/uL (1.2-4.9); MANUAL DIFF FLAG NO; Mean Corpuscular HGB Conc 35.1 g/dl (31.0-36.0); Mean Corpuscular Hemoglobin 29.3 pg (27.0-33.0); Mean Corpuscular Volume 83.5 fL (80.0-98.0); NRBC Abs Auto 0.000 X10*3/uL (0.0-0.012); NRBC Pct Auto 0.0 /100WBC (0.0-0.2); Platelet Count 178 X10*3/uL (160-400); Red Blood Count 5.08 X10*6/uL (4.60-5.80); White Blood Count 6.5 X10*3/uL (4.8-10.8)
[2025-06-09 04:29] LABS: Alanine Aminotransferase 23 U/L (0-40); Albumin Level 4.0 g/dL (3.5-5.0); Alkaline Phosphatase 63 U/L (39-117); Anion Gap 12 (12-20); Aspartate Amino Transferase 23 U/L (5-37); Blood Urea Nitrogen 11 mg/dL (9-16); Calcium 8.5 mg/dL (8.4-10.2); Carbon Dioxide 26 mmol/L (22-29); Chloride 107 mmol/L (96-108); Creatinine Clr Calc Pharmacy 111.2; Estimated Glomerular Filt Rate > 60; Magnesium 2.1 mg/dL (1.6-2.6); Potassium 3.9 mmol/L (3.3-5.1); Sodium 141 mmol/L (135-145); Total Protein 6.5 g/dL (6.5-8.0)
[2025-06-09 05:56] VITALS: BP 116/73; PULSE 68; RESP 14; TEMP 36.5; O2SAT 98
--- NOTE | 2025-06-09 10:11 | PC.NURSE ---
Assumed care of patient when brought over from the ED. Pt calm and cooperative, took shower, no apparent distress is noted. Pt is currently pending a urine sample and then CARE team evaluation
--- NOTE | 2025-06-09 10:21 | PC.NURSE ---
Pt reports to this RN that he takes no medications at home
[2025-06-09 14:04] VITALS: BP 117/71; PULSE 75; RESP 16; TEMP 37.3; O2SAT 99
[2025-06-09 14:05] LABS: Appearance Urine Turbid; Glucose Urine UA Negative (Negative); PH 8.0 (5.0-9.0); Specific Gravity - Urine 1.010 (1.005-1.025)
--- NOTE | 2025-06-09 14:12 | PC.NURSE ---
Pt remains calm and coopertive, aware that he is pending CARE team eval, was willing to provide a urine sample after conversing with this RN
[2025-06-09 14:21] LABS: Cannabinoid Screen Urine POSITIVE (Not Detect)
[2025-06-09 15:54] VITALS: BP 117/71; PULSE 75; RESP 16; TEMP 37.3; O2SAT 99
--- NOTE | 2025-06-11 09:43 | MHC.CARE ---
[facility] Referral complete
== END 2025-06-09 15:57 | disposition home or self-care (01) ==
PROVIDERS: Emergency Medicine; Emergency Provider Emergency Medicine Emergency Medical Services
DX: R41.82 Altered mental status, unspecified (principal); F19.10 Other psychoactive substance abuse, uncomplicated; Z79.899 Other long term (current) drug therapy
CPT/HCPCS: 36415; 80048; 80076; 80307; 81003; 83735; 85025; 99284; S9485

== ENCOUNTER → 2025-06-25 02:04 | Outpatient (BNV) | payer OTHER, SELFPAY | PROVIDERS: Visit Provider Radiology Diagnostic Radiology | DX: M25.561 Pain in right knee (principal); R60.0 Localized edema; M79.642 Pain in left hand | CPT/HCPCS: 73130; 73564 ==

== ENCOUNTER 2025-06-25 02:49 | Emergency (ER) | payer OTHER, SELFPAY ==
--- NOTE | ~2025-06-25 | XR_ITS ---
CLINICAL HISTORY: pain s p fall Left hand, 3 views COMPARISON: None provided FINDINGS: No acute fracture. No dislocation. Unremarkable soft tissues. IMPRESSION: No acute findings. This document has been electronically signed by: Abdelrahman Joshua MD on 06/25/2025 03:32:23
--- NOTE | ~2025-06-25 | XR_ITS ---
CLINICAL HISTORY: pain s p fall Right knee, 5 views COMPARISON: None provided FINDINGS: No acute fracture. No dislocation. Anterior soft tissue edema. IMPRESSION: No acute fracture. Anterior soft tissue edema. This document has been electronically signed by: Abdelrahman Joshua MD on 06/25/2025 03:34:07
[2025-06-25 02:50] VITALS: BP 108/58; PULSE 78; RESP 16; TEMP 36.6; O2SAT 100; BMI 21.5
--- NOTE | 2025-06-25 03:04 | PC.NURSE ---
pt is axox4 ambulatory with steady gait. reports R. knee, L hand and neck pain. per Dr Duke will examine pt regarding neck pain to order imaging but to order xr for hand and knee at this time. pt to room 10.
--- OUTSIDE RECORDS SUMMARY | 2025-06-25 03:30 | XMS_ITS | Clinical Summary ---
Author Organization [employer] Address [address] [facility] [address] [place] [address] Care Team Providers Care Medical Affairs Director Name Role Phone Unavailable Primary Care Provider Unavailabl e Encounters Date Type Department Care Team Description 04/16/2025 Patient Outreach [facility] [address] [place] [address] Alexis Dugan Recovery Supports 04/16/2025 Patient Outreach [facility] [address] [place] [address] Zack Clayton Recovery Supports 04/02/2025 Patient Outreach [facility] [address] [place] [address] Zack Clayton Recovery Supports from Last 3 Months Social History Tobacco [...] Date Last Done Comments Depression Screening 1990 Lipid Panel 1990 Disability Screening 1990 Alcohol/Substance Use Screening 2002 Tobacco Screening 2002 Family Planning (PISQ) 2005 HPV Vaccines (1 - Male 3-dos e series) 2005 DTaP/Tdap/Td Vaccines (1 - Tdap) 2009 Hepatitis B Vaccines (1 of 3 - 19+ 3-dose series) 2009 COVID-19 Vaccine (1 - 2023-2 5 season) 2024 Influenza Vaccine (#1) 2025 09/01/2019 Zoster Vaccines (1 of 2) 2040 [...] Years) and At-Risk Patients (6 to 49) Years Aged Out No longer eligi ble based on patient's age to complete this topic RSV under 20 months Aged Out No longe r eligible based on patient's age to complete this topic Rotavirus Vaccines Aged Out No longer eligible based on patient's age to complete this topic
--- OUTSIDE RECORDS SUMMARY | 2025-06-25 03:30 | XMS_ITS | Clinical Summary ---
Author Organization [facility] Address [address] [place] [address] Phone Care Team Providers Care Service Worker Helper Name Role Phone Diego Francois Primary Care Provider [phone] Immunizations Immunization Administration Dates Next Due DTP [...] of 2 - 13+ 2-dose series) 2003 HPV Vaccines (1 - 3-dose SCDM series) 2017 COVID-19 Vaccine ( - 2023- season) 2024 Influenza Vaccines (#1) 2025 HIB Vaccines Aged Out 1990 No longer eligi ble based on patient's age to complete this topic IPV Vaccines Completed 06/25/1995, 11/02, 1990, Additional history exists MMR Vaccines Completed 06/25/1995, 11/28/1991 Hepatitis B Vaccines Completed 04/09/2005, 09/01/2004, 10/02/2002 Hepatitis A Vaccines Aged Out No long [...] age to complete this topic Care Teams Service Worker Helper Relationship Specialty Start Date End Date Diego Francois [address] [place] [id number] PCP - General 06/11/17
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
[2025-06-25 05:07] VITALS: BP 95/56; PULSE 76; RESP 18; TEMP 36.6; O2SAT 98
[2025-06-25 05:09] VITALS: BP 95/56; PULSE 76; RESP 18; TEMP 36.6; O2SAT 98
== END 2025-06-25 05:09 | disposition home or self-care (01) ==
PROVIDERS: Emergency Provider Emergency Medicine
DX: S80.211A Abrasion, right knee, initial encounter (principal); S60.512A Abrasion of left hand, initial encounter; M25.561 Pain in right knee; M79.642 Pain in left hand; V18.4XXA Pedal cycle driver injured in noncollision transport accident in traffic accident, initial encounter; Y93.9 Activity, unspecified; Y92.410 Unspecified street and highway as the place of occurrence of the external cause; Y99.8 Other external cause status
CPT/HCPCS: 73130; 73564; 99283; 99284

== ENCOUNTER 2025-07-09 06:11 | Emergency (ER) | payer OTHER, SELFPAY ==
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
[2025-07-09 06:23] VITALS: BP 118/64; PULSE 70; RESP 16; TEMP 36.1; O2SAT 100; BMI 22.2
--- OUTSIDE RECORDS SUMMARY | 2025-07-09 06:47 | XMS_ITS | Clinical Summary ---
Author Organization [employer] Address [address] [facility] [address] [place] [address] Care Team Providers Care High Raw Sugar Boiler Name Role Phone Unavailable Primary Care Provider Unavailabl e Encounters Date Type Department Care Team Description 04/16/2025 Patient Outreach [facility] [address] [place] [address] Alexis Dugan Recovery Supports 04/16/2025 Patient Outreach [facility] [address] [place] [address] Zack Clayton Recovery Supports from Last 3 [...] COVID-19 Vaccine (1 - 2023-2 5 season) 2025 Influenza Vaccine (#1) 2025 09/01/2019 Zoster Vaccines [...]
--- OUTSIDE RECORDS SUMMARY | 2025-07-09 06:47 | XMS_ITS | Clinical Summary ---
Author Organization [facility] Address [address] [place] [address] Phone Care Team Providers Care Post Manager Name Role Phone Diego Francois Primary Care Provider [phone] Immunizations Immunization Administration Dates Next Due DTP [...] Vaccines (1 - 3-dose SCDM series) 2017 Influenza Vaccines (#1) 2025 COVID-19 Vaccine ( - season) 2025 HIB Vaccines Aged Out 1990 No [...] age to complete this topic Care Teams Post Manager Relationship Specialty Start Date End Date Diego Francois [address] [place] [id number] PCP - General 06/11/17
--- OUTSIDE RECORDS SUMMARY | 2025-07-09 06:47 | XMS_ITS | Clinical Summary ---
Author Organization [facility] [facility] it[facility] Address [address] [place] [address] Care Team Providers Care 4 H Youth Development Specialist Name Role Phone Unavailable Primary Care Provider [...] of 3 - 19+ 3-dose series) 2009 Cholesterol Screening (Lipid Panel) 05/24/2024 HIV Screening 05/24/2024 Hepatitis C Screening 05/24/2024 Social Influencers of Health Screening 05/24/2024 Depression Screening 11/01/2024 COVID-19 Vaccine (2023-2 5 season) 2025 Influenza Vaccine (#1) 2025 HIB Vaccines Aged Out No longer [...] 5 Years) and At-Risk Patients (6 to 49 Years) Aged Out No longer eligible b ased on patient's age to complete this topic RSV Immunization Patients Un jacques 20 months Aged Out No longer eligible b ased on patient's age to complete this topic Varicella Vaccines Aged Out No longer eligible based on patient's age to complete this topic
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
[2025-07-09 08:14] VITALS: BP 118/64; PULSE 70; RESP 16; TEMP 36.1; O2SAT 100
== END 2025-07-09 08:16 | disposition home or self-care (01) ==
PROVIDERS: Emergency Provider Emergency Medicine
DX: M79.671 Pain in right foot (principal); G89.29 Other chronic pain
CPT/HCPCS: 73630; 99283; 99284

== ENCOUNTER → 2025-07-09 06:50 | Outpatient (BNV) | payer OTHER, SELFPAY | PROVIDERS: Emergency Provider Emergency Medicine; Visit Provider Radiology Diagnostic Radiology | DX: R22.41 Localized swelling, mass and lump, right lower limb (principal) | CPT/HCPCS: 73630 ==

== ENCOUNTER 2025-07-27 02:32 | Emergency (ER) | payer OTHER, SELFPAY ==
[2025-07-27 02:40] VITALS: BP 118/73; PULSE 78; RESP 16; TEMP 37.1; O2SAT 98; BMI 25.8
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
--- OUTSIDE RECORDS SUMMARY | 2025-07-27 03:02 | XMS_ITS | Clinical Summary ---
Author Organization [employer] [facility] it[facility] Address [address] [place] [address] Care Team Providers Care Offset Pressman Name Role Phone Unavailable Primary Care Provider [...]
--- OUTSIDE RECORDS SUMMARY | 2025-07-27 03:02 | XMS_ITS | Clinical Summary ---
Author Organization [facility] Address [address] [place] [address] Phone Care Team Providers Care Cryptologic Support Specialist Name Role Phone Diego Francois Primary Care Provider [phone] Immunizations Immunization Administration Dates Next Due DTP [...] age to complete this topic Care Teams Cryptologic Support Specialist Relationship Specialty Start Date End Date Diego Francois [address] [place] [phone] PCP - General 06/11/17
--- OUTSIDE RECORDS SUMMARY | 2025-07-27 03:02 | XMS_ITS | Clinical Summary ---
Author Organization [employer] Address [address] [facility] [address] [place] [address] Care Team Providers Care Silviculture Forester Name Role Phone Unavailable Primary Care Provider [...]
[2025-07-27] MEDS: cefTRIAXone sodium 1 GM, Lidocaine HCl 1 % MPF 2.1 ML IM (03:09)
[2025-07-27 03:31] VITALS: BP 118/73; PULSE 78; RESP 16; TEMP 37.1; O2SAT 98
== END 2025-07-27 03:32 | disposition home or self-care (01) ==
PROVIDERS: Emergency Provider Emergency Medicine
DX: R30.0 Dysuria (principal); Z20.2 Contact with and (suspected) exposure to infections with a predominantly sexual mode of transmission
CPT/HCPCS: 96372; 99284; J0696; J2003

== ENCOUNTER 2025-08-28 01:48 | Emergency (ER) | payer OTHER, SELFPAY ==
[2025-08-28 01:51] VITALS: BP 106/58; PULSE 88; RESP 18; TEMP 36.1; O2SAT 95; BMI 25.8
--- OUTSIDE RECORDS SUMMARY | 2025-08-28 02:18 | XMS_ITS | Clinical Summary ---
Author Organization [facility] Address [address] [place] [address] Care Team Providers Care Head Filter Press Tender Name Role Phone Unavailable Primary Care Provider [...] of 3 - 19+ 3-dose series) 2009 HPV Vaccines (1 - 3-dose SCD M series) 2017 Cholesterol Screening (Lipid Panel) 05/24/2024 HIV Screening 05/24/2024 Hepatitis C Screening 05/24/2024 Social Influencers of Health Screening 05/24/2024 Depression Screening 11/01/2024 COVID-19 Vaccine ( - 2023-2 5 season) 2025 Influenza Vaccine (#1) 2025 RSV Immunization Adult Patie nts (1 - 1-dose 75+ series) 2065 HIB [...]
--- OUTSIDE RECORDS SUMMARY | 2025-08-28 02:18 | XMS_ITS | Clinical Summary ---
Author Organization [facility] Address [address] [place] [address] Phone Care Team Providers Care Trash Hauler Name Role Phone Diego Francois Primary Care Provider [phone] Immunizations Immunization Administration Dates Next Due DTP [...] Vaccines (#1) 2025 COVID-19 Vaccine ( - 2024-26 season) 2025 HIB Vaccines Aged Out 1990 [...] age to complete this topic Care Teams Trash Hauler Relationship Specialty Start Date End Date Diego Francois [address] [place] [phone] PCP - General 06/11/17
--- OUTSIDE RECORDS SUMMARY | 2025-08-28 02:18 | XMS_ITS | Clinical Summary ---
Author Organization [employer] Address [address] [facility] [address] [place] [address] Care Team Providers Care Poultry Farmworker Name Role Phone Unavailable Primary Care Provider [...]
--- NOTE | 2025-08-28 03:27 | PC.NURSE ---
patient requesting juice and to be able to stay here and get some rest. encouraged patient to get some rest while awaiting his dispo. laying in bed w/ call dwyer within reach, lights dimmed.
--- NOTE | 2025-08-28 03:28 | ED.GENADULT ---
HPI - General Adult General Chief complaint: Skin/Abscess/Foreign Body Stated complaint: itchy? Time Seen by Provider: 08/28/25 03:27 Source: patient Mode of arrival: ambulatory Limitations: no limitations History of Present Illness ED Provider: Derik MAZARIEGOS HPI narrative: The patient is a 35-year-old male with a history of psoriasis presenting to the ED for evaluation of severe pruritus. Patient reports his psoriasis often flares in cold weather and since the change of seasons he has been experiencing 2-3 weeks of worsening pruritus. The patient states he has state health insurance, however does not follow with a primary care provider and is not come on any preventative medications for his psoriasis. The patient reports he uses triamcinolone ointment, not cream, but ran out of the movement and presents to the ED for management. The patient denies associated fever/chills, nausea, vomiting, chest pain, shortness of breath or other acute somatic complaint. Related Data Previous Rx's ?Medication ?Instructions ?Recorded doxycycline hyclate 100 mg capsule 100 mg PO BID #14 caps 07/27/25 diphenhydramine HCl 25 mg capsule 25 mg PO TID PRN itching #20 caps 08/28/25 (Benadryl) famotidine 20 mg tablet (Pepcid) 20 mg PO BID #28 tabs 08/28/25 prednisone 10 mg tablet 10 mg PO DIRECTED #42 tabs 08/28/25 triamcinolone acetonide 0.1 % 1 appl topical BID #30 grams 08/28/25 topical ointment Allergies Allergy/AdvReac Type Severity Reaction Status Date / Time No Known Allergies (No Known Allergy Verified 08/28/25 01:53 Allergies*) Review of Systems Review of Systems: Yes all other systems are reviewed and are negative [facility] Past Medical History Medical History Psoriasis Social History Social History Alcohol intake: never Patient Tobacco Use Status: Never used Tobacco Substance Use Type: Marijuana Advance Directives: No Advance Directives Information Provided: Yes Do you have a plan to hurt others: No Plan Physical Exam ED Vital Signs: Vital Signs - 24 hr 08/28/25 01:51 Temperature 96.9 F Pulse Rate 88 Respiratory Rate 18 Blood Pressure 106/58 L Pulse Oximetry 95 Oxygen Delivery Method Room Air BMI result Body Mass Index 25.8 CONSTITUTIONAL: The patient appears non-toxic, well nourished and in no acute distress. Vital signs as documented. HEAD: Atraumatic, normocephalic. EYES: EOMs grossly intact, pupils equal, conjunctiva clear, no exudate. ENT: Nares patent, no discharge. Airway patent, no audible stridor, visible mucosa is pink and moist without noted lesions. NECK: trachea is midline, no obvious masses or gross abnormalities. CHEST: Symmetric movement, normal appearance. LUNGS: Non-labored work of breathing. CARDIAC: No evidence of hypoperfusion. ABDOMEN: Nondistended, no obvious injury. : Deferred. EXTREMITIES: Moves all extremities spontaneously without reported pain. No obvious injury or deformity noted. NEURO: Alert and oriented x3, CN II-XII appear grossly intact. Cerebellar Functioning grossly intact. Speech clear and appropriate. SKIN: Warm, dry, color appropriate. There are diffuse innumerable patches of scaling ovoid rash consistent with psoriasis noted to the back, trunk, scalp, and extremities x4. No evidence of overlying cellulitis, No other rashes or lesions noted. Medical Decision Making Medical Decision Making MDM Narrative: 3:36 AM 08/28/2025 (Shira MAZARIEGOS): The patient is a 35-year-old male with a history of psoriasis presenting to the ED for evaluation of severe pruritus. Patient reports his psoriasis often flares in cold weather and since the change of seasons he has been experiencing 2-3 weeks of worsening pruritus. The patient states he has state health insurance, however does not follow with a primary care provider and is not come on any preventative medications for his psoriasis. The patient reports he uses triamcinolone ointment, not cream, but ran out of the movement and presents to the ED for management. The patient denies associated fever/chills, nausea, vomiting, chest pain, shortness of breath or other acute somatic complaint. The patient's exam demonstrates a diffuse rash consistent with severe psoriasis, no other acute findings. Vital signs normal. The patient will be treated with triamcinolone ointment, prednisone, Pepcid, Benadryl, and discharged with the same. Discharge Plan Discharge Clinical Impression: Psoriasis Patient Disposition: Home, Self-Care Instructions: Psoriasis (ED) Prescriptions: New prednisone 10 mg tablet 10 mg PO DIRECTED Qty: 42 0RF Rx Instructions: Take 60 mg (6 tabs) daily for 2 days. Then take 50 mg (5 tabs) daily for 2 days. Then take 40 mg (4 tabs) daily for 2 days. Then take 30 mg (3 tabs) daily for 2 days. Then take 20 mg (2 tabs) daily for 2 days. Then take 10 mg (1 tab) daily for 2 days. Then stop. famotidine [Pepcid] 20 mg tablet 20 mg PO BID Qty: 28 0RF diphenhydramine HCl [Benadryl] 25 mg capsule 25 mg PO TID PRN (Reason: itching) Qty: 20 0RF triamcinolone acetonide 0.1 % ointment 1 appl topical BID Qty: 30 0RF No Action doxycycline hyclate 100 mg capsule 100 mg PO BID Qty: 14 0RF Print Language: Croatian
[2025-08-28 04:04] VITALS: BP 106/58; PULSE 88; RESP 18; TEMP 36.1; O2SAT 95
== END 2025-08-28 04:17 | disposition home or self-care (01) ==
PROVIDERS: Emergency Provider Emergency Medicine; PCP Internal Medicine
DX: L40.9 Psoriasis, unspecified (principal)
CPT/HCPCS: 99283; 99284

== ENCOUNTER 2025-10-01 01:30 | Emergency (ER) | payer OTHER, SELFPAY ==
[2025-10-01 01:35] VITALS: BP 114/65; PULSE 109; RESP 16; TEMP 36.3; O2SAT 96; BMI 22.8
--- NOTE | 2025-10-01 02:01 | ED_ITS ---
HPI - Skin/Abscess/Foreign Bdy General Chief complaint: Skin/Abscess/Foreign Body Stated complaint: tick Time Seen by Provider: 10/01/25 01:58 Source: patient Mode of arrival: ambulatory Limitations: no limitations History of Present Illness ED Provider: Dr. Emely Vega HPI narrative: Patient comes to the emergency room reporting that he saw a tick in his right thigh earlier today. Patient states that he was able to pull it out and now has a little scar. Patient denies any pain. Patient states that his skin looks a little bit red. Related Data Previous Rx's ?Medication ?Instructions ?Recorded doxycycline hyclate 100 mg capsule 100 mg PO BID #14 c aps 07/27/25 diphenhydramine HCl 25 mg capsule 25 mg PO TID PRN itc jung #20 caps 08/28/25 (Benadryl) famotidine 20 mg tablet (Pepcid) 20 mg PO BID #28 tabs 08/28/25 prednisone 10 mg tablet 10 mg PO DIRECTED #42 tab s 08/28/25 triamcinolone acetonide 0.1 % 1 appl topical BID #30 g herminio 08/28/25 topical ointment pyrethrins 0.33 %-piperonyl 1 appl topical ONCE #59 mL 10/01/25 butoxide 4 % shampoo Allergies Allergy/AdvReac Type Severity Reaction Status Date / Time No Known Allergies (No Known Allergy Verified 10/01/25 01:37 Allergies*) Review of Systems Review of Systems: Constitutional : No Weight loss, No Fever, No Chills, No Night Sweats, No Fatigue, No Malaise ENT/Mouth : No Hearing loss, No Ear Pain, No Nasal Congestion, No Sinus Pain, No Hoarseness, No sore throat, No Rhinorrhea, No Swallowing Difficulty Eyes: No Eye Pain, No Swelling, No Redness, No Foreign Body, No Discharge, No Vision Changes Cardiovascular : No Chest Pain, No SOB, No Dyspnea on Exertion, No Orthopnea, No Edema, No Palpitations Respiratory : No Cough, No Sputum, No Wheezing, No Smoke Exposure, No Dyspnea Gastrointestinal : No Nausea, No Vomiting, No Diarrhea, No Constipation, No abdominal Pain, No Hematochezia, No Melena Genitourinary : no irregular bleeding, No Dysuria, No Urinary Frequency, No Hematuria, No Urinary Incontinence, No Urgency, No Flank Pain, No Urinary Flow Changes, No Hesitancy Musculoskeletal : No joint pain, No Myalgias, No Joint Swelling Skin : Complaining of a lesion to the right thigh, patient states that he was able to pull it up Neuro : No Weakness, No Numbness, No Paresthesias, No Loss of Consciousness, No Dizziness, No Headache Psych : No Anxiety/Panic, No Depression, No SI/HI/AH/VH, No Social Issues, Heme/Lymph: No Bruising, No Bleeding,No Lymphadenopathy Endocrine : No Polyuria, No Polydipsia, No Temperature Intolerance [facility] Past Medical History Medical History Psoriasis Social History Social History Alcohol intake: never Patient Tobacco Use Status: Never used Tobacco Substance Use Type: Marijuana Advance Directives: No Advance Directives Information Provided: No Physical Exam Exam: Exam: Appearance: Alert. Oriented X3. No acute distress. Eyes: Pupils equal, round and reactive to light. ENT: Pharynx normal. Neck: Normal inspection. Neck supple. No lymph nodes noted. No crepitus CVS: Normal heart rate and rhythm. Pulses normal. Normal S1 and S2 Respiratory: No respiratory distress. Breath sounds normal. No Wheezing. No rales Abdomen: Soft and nontender. No rigidity. No distention. Skin: Patient has psoriasis plaques. Patient has a very small 1 mm x 1 mm lesion, eschar where he pulled out the tick. Does not seem that the head was left behind. Extremities: No lower extremity edema. No Lacerations. No Rash Neuro: Oriented X 3. No motor deficit. No sensory deficit. Moving all extremities. No slurred speech. CN 2 through 12 grossly intact Psych: calm, cooperative, normal affect Vital Signs: Vital Signs: Last Vital Signs Temp 97.3 F 10/01/25 01:35 Pulse 109 H 10/01/25 01:35 Resp 16 10/01/25 01:35 BP 114/65 10/01/25 01:35 Pulse Ox 96 10/01/25 01:35 O2 Del Method Room Air 10/01/25 01:35 BMI result Body Mass Index 22.8 Medications Administered Discontinued Medications Generic Name Dose Route Start Last Admin Trade Name Freq PRN Reason Stop Dose Admin Doxycycline Monohydrate 200 mg 10/01/25 02:03 10/01/25 02:08 Doxycycline Monohydrate 100 Mg Capsule PO 10/01/25 02:04 200 mg ONCE ONE Administration Medical Decision Making Medical Decision Making MDM Narrative: I discussed the physical exam with the patient, no obvious signs of cellulitis. Patient does not know what kind of tick his right thigh. Patient does not know how long it was attached to his skin Patient was empirically given 200 mg of doxycycline. Patient also concerned about having possibly lice. Patient does have dandruff. However, patient states that he is concerned that he may have lice. Medication has been sent empirically with the patient's pharmacy Discharge Plan Discharge Clinical Impression: Tick bite Patient Disposition: Home, Self-Care Instructions: Tick Bite (ED) Additional Instructions: Please follow-up with your primary care physician tomorrow. If you have any worsening or new symptoms, please return to the emergency room or call 911 Prescriptions: New pyrethrins-piperonyl butoxide 0.33-4 % shampoo 1 appl topical ONCE Qty: 59 0RF No Action doxycycline hyclate 100 mg capsule 100 mg PO BID Qty: 14 0RF prednisone 10 mg tablet 10 mg PO DIRECTED Qty: 42 0RF Rx Instructions: Take 60 mg (6 tabs) daily for 2 days. Then take 50 mg (5 tabs) daily for 2 days. Then take 40 mg (4 tabs) daily for 2 days. Then take 30 mg (3 tabs) daily for 2 days. Then take 20 mg (2 tabs) daily for 2 days. Then take 10 mg (1 tab) daily for 2 days. Then stop. famotidine [Pepcid] 20 mg tablet 20 mg PO BID Qty: 28 0RF diphenhydramine HCl [Benadryl] 25 mg capsule 25 mg PO TID PRN (Reason: itching) Qty: 20 0RF triamcinolone acetonide 0.1 % ointment 1 appl topical BID Qty: 30 0RF Print Language: Czech
--- OUTSIDE RECORDS SUMMARY | 2025-10-01 02:07 | XMS_ITS | Clinical Summary ---
Author Organization [employer] [facility] ity Address [address] [place] [address] Care Team Providers Care Engineering Vice President Name Role Phone Unavailable Primary Care Provider [...] Depression Screening 11/01/2024 COVID-19 Vaccine ( - 2024-2 6 season) 2025 Influenza Vaccine (#1) 2025 RSV [...]
--- OUTSIDE RECORDS SUMMARY | 2025-10-01 02:07 | XMS_ITS | Clinical Summary ---
Author Organization [facility] Address [address] [place] [address] Phone Care Team Providers Care Envelope Fold Operator Name Role Phone Diego Francois Primary Care Provider [phone] Immunizations Immunization Administration Dates Next Due DTP [...] age to complete this topic Care Teams Envelope Fold Operator Relationship Specialty Start Date End Date Diego Francois [address] [place] [id number] PCP - General 06/11/17
[2025-10-01 02:21] VITALS: BP 114/65; PULSE 109; RESP 16; TEMP 36.3; O2SAT 96
== END 2025-10-01 02:23 | disposition home or self-care (01) ==
PROVIDERS: Emergency Provider Emergency Medicine
DX: S70.361A Insect bite (nonvenomous), right thigh, initial encounter (principal); W57.XXXA Bitten or stung by nonvenomous insect and other nonvenomous arthropods, initial encounter; Y93.9 Activity, unspecified; Y92.9 Unspecified place or not applicable; Y99.9 Unspecified external cause status
CPT/HCPCS: 99282; 99283

== ENCOUNTER 2025-10-09 01:23 | Emergency (ER) | payer OTHER, SELFPAY ==
[2025-10-09 01:24] VITALS: BP 137/66; PULSE 84; RESP 16; O2SAT 99; BMI 20.1
--- NOTE | 2025-10-09 01:35 | PC.NURSE ---
patient not cooperative with oral temp in triage. continued to open mouth and bite thermometer. not able to obtain an accurate temp while in triage area.
--- NOTE | 2025-10-09 02:01 | ED.GENADULT ---
HPI - General Adult General Chief complaint: General Medical Stated complaint: cold Time Seen by Provider: 10/09/25 02:01 Source: patient Mode of arrival: ambulatory Limitations: no limitations History of Present Illness ED Provider: Dr. Yamini Duke HPI narrative: 35-year-old male with a history of substance use and housing insecurity presenting with feeling cold and requesting long term from the street. States he is also hungry. He is wearing sneakers and a light jacket. Could not get into the long term tonight. He has no other medical complaints. Denies alcohol or substance use in the last 24 hours. Related Data Previous Rx's ?Medication ?Instructions ?Recorded doxycycline hyclate 100 mg capsule 100 mg PO BID #14 caps 07/27/25 diphenhydramine HCl 25 mg capsule 25 mg PO TID PRN itching #20 caps 08/28/25 (Benadryl) famotidine 20 mg tablet (Pepcid) 20 mg PO BID #28 tabs 08/28/25 prednisone 10 mg tablet 10 mg PO DIRECTED #42 tabs 08/28/25 triamcinolone acetonide 0.1 % 1 appl topical BID #30 grams 08/28/25 topical ointment pyrethrins 0.33 %-piperonyl 1 appl topical ONCE #59 mL 10/01/25 butoxide 4 % shampoo Allergies Allergy/AdvReac Type Severity Reaction Status Date / Time No Known Allergies (No Known Allergy Verified 10/09/25 01:28 Allergies*) Review of Systems Review of Systems: as per HPI, full review of systems performed and negative but for the above mentioned pertinent positives and negatives. PMFSH Past Medical History Medical History Psoriasis Social History Social History Alcohol intake: never Patient Tobacco Use Status: Never used Tobacco Smoked in Last 30 Days: Yes Use of substances other than those prescribed or required for medical reasons: No Substance Use Type: Marijuana Advance Directives: No Advance Directives Information Provided: Yes Physical Exam ED Exam Exam: GENERAL: Unkempt, no acute distress. SKIN: Normal skin color for ethnicity, warm, dry, no rashes noted. HEENT:? Normocephalic, atraumatic, no stridor, posterior oropharynx nonerythematous, dentition intact, EOMI. NECK: Soft, supple, full ROM, midline structures nontender, no step-offs, no deformities, no lymphadenopathy. CHEST: Heart regular rate and rhythm, no murmurs, symmetric chest rise and fall. PULMONARY: Clear to auscultation bilaterally, no labored breathing, no wheezes/rhales/rhonchi. ABDOMINAL: Soft, nondistended, nontender, positive bowel sounds in all quadrants. : Deferred. MUSCULOSKELETAL: Normal tone, full range of motion, no deformities, no peripheral edema. NEURO: Alert and oriented x3, CN II through XII intact, equal strength and sensation bilateral upper and lower extremities, no focal neurologic deficits.? PSYCHIATRIC: Flat affect, poor eye contact, withdrawn Vital Signs: Vital Signs - 24 hr 10/09/25 01:24 10/09/25 02:17 Temperature 97 F Pulse Rate 84 Respiratory Rate 16 Blood Pressure 137/66 Pulse Oximetry 99 Oxygen Delivery Method Room Air BMI result Body Mass Index 20.1 Medical Decision Making Medical Decision Making MDM Narrative: Patient presenting with request for long term in the setting of a very cold night and not being able to get into local homeless long term. He was provided with a blanket, food and drink and was allowed to rest in the emergency department for several hours prior to discharge. He has no medical complaints. Does not appear intoxicated, ambulatory with a steady gait. Tolerating oral intake. Stable for discharge. Provided with resources for local shelters. Differential Diagnosis Differential Diagnoses: The differential diagnosis associated with the presentation includes housing insecurity, depression, anxiety, mood disorder, decompensated mental illnesses such as schizophrenia or bipolar disorder, medication noncompliance, malingering, among others Admission/Observation Consideration of admission/observation: Escalation of care including admission/observation considered External Record Review External record reviewed: Inpatient record Chronic Conditions Patient?s care impacted by: Other (ABRAN) Social Determinants Patient?s care significantly limited by Social Determinants of Health including: Inadequate housing, Problems related to primary support group, Unemployment and Other Social Determinant of Health Discharge Plan Discharge Clinical Impression: Housing insecurity Patient Disposition: Home, Self-Care Instructions: Acute Hypothermia (ED) Additional Instructions: You were seen in our Emergency Department today for treatment of a behavioral health issue. It is important after your visit that you follow up with either your behavioral health provider or a primary care doctor within 7 days.? If you have trouble finding a therapist you can reach out to [place] [phone] The National Suicide and Crisis Lifeline can be reached 7 days a week 24 hours a day.? Call 988 to speak with someone.? Return for any worsening symptoms or concerns such as thoughts of self harm or harm to others. Please call 911 if you feel your mental health is worsening.? Prescriptions: No Action doxycycline hyclate 100 mg capsule 100 mg PO BID Qty: 14 0RF pyrethrins-piperonyl butoxide 0.33-4 % shampoo 1 appl topical ONCE Qty: 59 0RF prednisone 10 mg tablet 10 mg PO DIRECTED Qty: 42 0RF Rx Instructions: Take 60 mg (6 tabs) daily for 2 days. Then take 50 mg (5 tabs) daily for 2 days. Then take 40 mg (4 tabs) daily for 2 days. Then take 30 mg (3 tabs) daily for 2 days. Then take 20 mg (2 tabs) daily for 2 days. Then take 10 mg (1 tab) daily for 2 days. Then stop. famotidine [Pepcid] 20 mg tablet 20 mg PO BID Qty: 28 0RF diphenhydramine HCl [Benadryl] 25 mg capsule 25 mg PO TID PRN (Reason: itching) Qty: 20 0RF triamcinolone acetonide 0.1 % ointment 1 appl topical BID Qty: 30 0RF Interventions: ED Discharge Assessment Last Done: 10/09/25 02:31 Discharge Date/Time: 10/09/25 02:35 Print Language: Guinean
--- NOTE | 2025-10-09 02:11 | PC.NURSE ---
provider into assess pt, pt verbalized understanding, sandwich and drink provided.
[2025-10-09 02:17] VITALS: TEMP 36.1
--- NOTE | 2025-10-09 02:17 | PC.NURSE ---
rectal temp taken and reported to provider 97.0
--- NOTE | 2025-10-09 02:29 | PC.NURSE ---
given a sandwich and provider clothing from lost and found upon discharge.
[2025-10-09 02:31] VITALS: BP 130/88; PULSE 88; RESP 20; TEMP 36.1; O2SAT 99
--- NOTE | 2025-10-09 02:31 | PC.NURSE ---
cms intact and pedal pulses present upon discharge.
--- OUTSIDE RECORDS SUMMARY | 2025-10-09 02:40 | XMS_ITS | Clinical Summary ---
Author Organization [employer] [facility] ity Address [address] [place] [address] Care Team Providers Care Investment Banker Name Role Phone Unavailable Primary Care Provider [...]
--- OUTSIDE RECORDS SUMMARY | 2025-10-09 02:40 | XMS_ITS | Clinical Summary ---
Author Organization [facility] Address [address] [place] [address] Phone Care Team Providers Care Camera Mechanic Name Role Phone Diego Francois Primary Care Provider [phone] Immunizations Immunization Administration Dates Next Due DTP [...] age to complete this topic Care Teams Camera Mechanic Relationship Specialty Start Date End Date Diego Francois [address] [place] [phone] PCP - General 06/11/17
--- OUTSIDE RECORDS SUMMARY | 2025-10-09 02:40 | XMS_ITS | Clinical Summary ---
Author Organization [employer] Address [address] [facility] [address] [place] [address] Care Team Providers Care Managing Broker Name Role Phone Unavailable Primary Care Provider [...] 3-dose series) 2009 COVID-19 Vaccine (1 - 2024-2 6 season) 2025 Influenza Vaccine (#1) 2025 09/01/2019 [...]
== END 2025-10-09 02:35 | disposition home or self-care (01) ==
PROVIDERS: Emergency Provider Emergency Medicine
DX: L40.9 Psoriasis, unspecified (principal); Z71.1 Person with feared health complaint in whom no diagnosis is made; Z59.00 Homelessness unspecified
CPT/HCPCS: 99282; 99284

== ENCOUNTER 2025-10-29 21:15 | Emergency (ER) | payer OTHER, SELFPAY ==
[2025-10-29 21:19] VITALS: BP 118/58; PULSE 84; RESP 20; TEMP 37; O2SAT 97; BMI 23.7
--- OUTSIDE RECORDS SUMMARY | 2025-10-30 00:23 | XMS_ITS | Clinical Summary ---
Author Organization [facility] Address [address] [place] [address] Phone Care Team Providers Care Printing Specialist Name Role Phone Diego Francois Primary Care Provider [phone] Immunizations Immunization Administration Dates Next Due DTP [...] age to complete this topic Care Teams Printing Specialist Relationship Specialty Start Date End Date Diego Francois [address] [place] [id number] PCP - General 06/11/17
--- OUTSIDE RECORDS SUMMARY | 2025-10-30 00:23 | XMS_ITS | Clinical Summary ---
Author Organization [employer] Address [address] [facility] [address] [place] [address] Care Team Providers Care Machine Heel Sprayer Name Role Phone Unavailable Primary Care Provider [...]
--- OUTSIDE RECORDS SUMMARY | 2025-10-30 00:23 | XMS_ITS | Clinical Summary ---
Author Organization [employer] [facility] ity Address [address] [place] [address] Care Team Providers Care Refresh Technician Name Role Phone Unavailable Primary Care Provider [...]
== END 2025-10-30 00:38 | disposition left against medical advice (07) ==
PROVIDERS: Emergency Provider Emergency Medicine
DX: S91.342A Puncture wound with foreign body, left foot, initial encounter (principal); W45.8XXA Other foreign body or object entering through skin, initial encounter; Z53.21 Procedure and treatment not carried out due to patient leaving prior to being seen by health care provider; Y93.9 Activity, unspecified; Y92.9 Unspecified place or not applicable; Y99.9 Unspecified external cause status
CPT/HCPCS: 99281